=== PATIENT | male | born 1990 | race Caucasian/White ===

== ENCOUNTER → 2020-10-26 | Outpatient (REF) | payer BC ==
[2020-10-26 23:09] LABS: GC DNA AMPLIFICATION NEGATIVE (NEGATIVE)
== END ==
LOC: M LAB REF 20:48
PROVIDERS: ATTEND Nurse Practitioner Family
DX: N34.1 Nonspecific urethritis (principal)

== ENCOUNTER → 2020-11-16 | Outpatient (CLI) | payer BC ==
--- NOTE | 2020-11-16 16:35 | REP ---
INDICATION: PAIN. COMPARISON: None. TECHNIQUE: Five views of the left knee were obtained. FINDINGS: There is no evidence of fracture or dislocation. There are no joint space abnormalities. There is a large knee joint effusion. The periarticular soft tissues are unremarkable. IMPRESSION: Large knee joint effusion without evidence of acute bony injury or arthropathy. <Electronically signed by Ivan Lawler > 11/16/20 [id number]
== END ==
LOC: M WUC 14:14
PROVIDERS: ATTEND Physician Assistant
DX: M25.462 Effusion, left knee (principal)

== ENCOUNTER → 2020-11-18 | Outpatient (CLI) | payer BC ==
[2020-11-18 13:11] LABS: BASO % 0.5 % (0.0-1.0); EOS # 0.3 10^3/uL (0.0-0.5); EOS % 3.3 % (0.0-3.0); HEMATOCRIT 41.7 % (42.0-52.0); LYMPH # 1.9 10^3/uL (1.5-5.0); LYMPH % 22.7 % (24.0-44.0); MEAN CORPUSCULAR HEMOGLOBIN 30.7 pg (27.0-33.0); MEAN CORPUSCULAR HGB CONC 33.6 g/dl (32.0-36.5); MEAN CORPUSCULAR VOLUME 91.4 fl (80.0-96.0); MONO # 0.6 10^3/uL (0.0-0.8); MONO % 7.1 % (2.0-8.0); NEUTROPHILS # 5.4 10^3/uL (1.5-8.5); NEUTROPHILS % 66.2 % (36.0-66.0); PLATELET COUNT, AUTOMATED 303 10^3/uL (150-450); RED BLOOD COUNT 4.56 10^6/uL (4.30-6.10); WHITE BLOOD COUNT 8.2 10^3/uL (4.0-10.0)
[2020-11-18 13:31] LABS: C REACTIVE PROTEIN QUANTITATIV 1.81 MG/DL (0.00-0.30); RHEUMATOID FACTOR QUANT < 10.0 IU/ML (<15.0)
[2020-11-18 13:46] LABS: ERYTHROCYTE SEDIMENTATION RATE 13 mm/hr (0-15)
[2020-11-18 14:39] LABS: CRYSTALS, BODY FLUID NONE SEEN (NONE SEEN); SOURCE, BODY FLUID CRYSTALS LFT KNEE
[2020-11-18 15:08] LABS: SOURCE, BODY FLUID LFT KNEE; SYNOVIAL FLUID COLOR PALE YELLOW (COLORLESS)
[2020-11-18 15:37] LABS: SOURCE, BODY FLUID GLUCOSE LFT KNEE
[2020-11-21 09:03] LABS: MUCIN CLOT TEST 3+ (4+)
[2020-11-21 09:10] LABS: BODY FLUID RHEUMATOID SCREEN NEGATIVE (NEGATIVE)
[2020-11-21 15:10] LABS: ANTINUCLEAR ANTIBODIES DIRECT Negative (Negative); Lyme Disease IgG/IgM Antibodie <0.91 ISR (0.00-0.90); Lyme Disease IgM Ab Quantitati <0.80 index (0.00-0.79)
== END ==
LOC: M WUC 10:43
PROVIDERS: ATTEND Orthopaedic Surgery
DX: M25.462 Effusion, left knee (principal)